=== PATIENT | male | born 1940 | race Caucasian/White ===

== ENCOUNTER → 2023-01-08 09:29 | Outpatient (BNVA) | payer OTHER, SELFPAY | PROVIDERS: Family Provider Internal Medicine; PCP Internal Medicine; Visit Provider Thoracic Surgery (Cardiothoracic Vascular Surgery) | DX: I96 Gangrene, not elsewhere classified (principal); L98.492 Non-pressure chronic ulcer of skin of other sites with fat layer exposed | CPT/HCPCS: 11042; 99213 ==

== ENCOUNTER → 2023-01-15 09:38 | Outpatient (BNVA) | payer OTHER, SELFPAY | PROVIDERS: Family Provider Internal Medicine; PCP Internal Medicine; Visit Provider Thoracic Surgery (Cardiothoracic Vascular Surgery) | DX: T22.252D Burn of second degree of left shoulder, subsequent encounter (principal); X08.8XXD Exposure to other specified smoke, fire and flames, subsequent encounter; I96 Gangrene, not elsewhere classified | CPT/HCPCS: 97597 ==

== ENCOUNTER → 2023-01-22 09:57 | Outpatient (BNVA) | payer OTHER, SELFPAY | PROVIDERS: Family Provider Internal Medicine; PCP Internal Medicine; Visit Provider Thoracic Surgery (Cardiothoracic Vascular Surgery) | DX: Z09 Encounter for follow-up examination after completed treatment for conditions other than malignant neoplasm (principal) | CPT/HCPCS: 99212 ==

== ENCOUNTER 2023-12-01 16:26 | Emergency (ER) | payer OTHER, SELFPAY ==
[2023-12-01 16:33] VITALS: BP 121/76; PULSE 86; RESP 15; TEMP 36.7; O2SAT 91; BMI 18.3
--- NOTE | 2023-12-01 16:41 | XRR_ITS ---
PROCEDURE INFORMATION: Exam: XR Chest Exam date and time: 12/01/2023 4:51 PM Age: 83 years old Clinical indication: Cough TECHNIQUE: Imaging protocol: Radiologic exam of the chest. Views: 1 view. COMPARISON: CR XR chest 1V [id number] 01/08/2018 9:44 AM FINDINGS: Lungs: New indistinct opacity in the left mid lung on the order of 2 cm in size. Small calcified granulomata in the right lung. Pleural spaces: No pleural effusion identified. Heart/Mediastinum: Cardiomediastinal silhouette is stable.. Bones/joints: No acute osseous abnormality identified. XR/XR chest 1V portable [id number] IMPRESSION: Indistinct approximately 2 cm density in the left mid lung with central lucency. This may represent a superimposition artifact from areas of scarring but a cavitary lesion cannot be excluded. Recommend further evaluation by chest CT. This could be performed noncontrast if clinically appropriate.
--- NOTE | 2023-12-01 16:58 | ED_ITS ---
HPI - URI/Sore Throat 2 General: Chief Complaint: Upper Respiratory Infection Stated Complaint: throat pain, ear pain Time Seen by Provider: 12/01/23 16:40 History of Present Illness: 83-year-old male patient comes in today with cough congestion. Patient appears chronically ill. Patient appears in no pain. Patient appears in no respiratory difficulty. Patient smokes about a pack a day. Patient denies any chronic medical problems. Patient is alert and oriented. Review of Systems 2 General: Reports: 10 or more systems reviewed and unremarkable except in HPI and below Resp: Reports: productive cough Physical Exam 2 Const: COMMON NORMALS: alert HENMT: COMMON NORMALS: normocephalic HEAD & SCALP: normocephalic Neck/C-Spine: COMMON NORMALS: full ROM Resp: COMMON NORMALS: normal respiratory effort AUSCULTATION: rhonchi Cardio: COMMON NORMALS: regular rate and regular rhythm RATE: regular rate RHYTHM: regular rhythm GI: COMMON NORMALS: Soft to palpation and non-tender PALPATION: Yes Soft to palpation Extremity: COMMON NORMALS: normal to inspection Neuro: SENSORIUM/ORIENTATION: Yes alert Skin: COMMON NORMALS: turgor normal GENERAL SKIN EXAM: turgor normal Course 2 Vital Signs: Vital signs: Vital Signs Temperature 98.0 F 12/01/23 16:33 Pulse Rate 78 12/01/23 17:11 Respiratory Rate 17 12/01/23 17:11 Blood Pressure 105/51 12/01/23 17:11 Pulse Oximetry 90 12/01/23 17:11 Oxygen Delivery Me thod Room Air 12/01/23 17:11 MDM - URI/Sore Throat Medical Decision Making 83-year-old male patient comes in today with cough and congestion for about 3 weeks. Patient reports worsening symptoms. Caregiver reports that he sometimes seems to gets choked on his food. Patient is a chronic cigarette smoker of about a pack a day. Patient moves all extremities well. Patient is alert and responds appropriately to questions. Patient appears in no distress. Vital signs are normal. Differential diagnosis includes pneumonia, dehydration, COPD, acute bronchitis, asthma, lung carcinoma. Chest x-ray notes indistinct area in his left mid lung approximately 2 cm which may be superimposition artifact versus a cavitary lesion I recommend further evaluation with CT scan. I reviewed this with patient and caregiver and recommended follow-up with primary care for CT evaluation. Patient will be treated with antibiotic for bronchitis and possible pneumonia. Patient was also given 10 mg dexamethasone. Patient and caregiver reported understanding and agreed to plan. Lab Data 12/01/23 17:12 12/01/23 17:12 Radiology Impressions Chest X-Ray 12/01/23 16:41 IMPRESSION: Indistinct approximately 2 cm density in the left mid lung with central lucency. This may represent a superimposition artifact from areas of scarring but a cavitary lesion cannot be excluded. Recommend further evaluation by chest CT. This could be performed noncontrast if clinically appropriate. Laboratory Results WBC 9.60 10^3/uL (3.29-11.43) 12/01/23 17:12 RBC 4.22 10^6/uL (3.85-5.65) 12/01/23 17:12 Hgb 12.30 g/dL (11.27-16.99) 12/01/23 17:12 Hct 38.9 % (37-53) 12/01/23 17:12 MCV 92.2 fl (82-101) 12/01/23 17:12 MCH 29.1 pg (27-33) 12/01/23 17:12 MCHC 31.6 g/dL (30-55) 12/01/23 17:12 RDW 14.1 % (12.1-15.1) 12/01/23 17:12 Plt Count 191 10^3/cmm (157-399) 12/01/23 17:12 MPV 11.6 fL (7.4-10.4) H 12/01/23 17:12 Neut % (Auto) 82.5 % 12/01/23 17:12 Lymph % (Auto) 10.7 % 12/01/23 17:12 [place] % (Auto) 5.9 % 12/01/23 17:12 Eos % (Auto) 0.4 % 12/01/23 17:12 Baso % (Auto) 0.1 % 12/01/23 17:12 Neut # (Auto) 7.91 10^3/uL (1.8-7.7) H 12/01/23 17:12 Lymph # (Auto) 1.0 10^3/uL (0.8-4.8) 12/01/23 17:12 [place] # (Auto) 0.6 10^3/uL (0.2-0.9) 12/01/23 17:12 Eos # (Auto) 0.0 10^3/uL (0.0-0.8) 12/01/23 17:12 Baso # (Auto) 0.0 10^3/uL (0.0-0.1) 12/01/23 17:12 Nucleated RBC % (auto) 0 % 12/01/23 17:12 Nucleated RBCs # 0.0 /100WBC 12/01/23 17:12 Sodium 141 mmol/L (136-145) 12/01/23 17:12 Potassium 4.1 mmol/L (3.5-5.1) 12/01/23 17:12 Chloride 104 mmol/L (98-107) 12/01/23 17:12 Carbon Dioxide 25 mmol/L (22-29) 12/01/23 17:12 Anion Gap 16.1 (5-19) 12/01/23 17:12 BUN 28 mg/dL (8-23) H 12/01/23 17:12 Creatinine 1.5 mg/dL (0.7-1.2) H 12/01/23 17:12 GFR Calculation Not Reportable 12/01/23 17:12 Glucose 114 mg/dL (65-115) 12/01/23 17:12 Calculated Osmolality 298 mOsm/kg (285-295) H 12/01/23 17:12 Calcium 9.2 mg/dL (8.5-10.5) 12/01/23 17:12 Total Bilirubin 0.5 mg/dL (0.15-1.2) 12/01/23 17:12 AST 8 U/L (0-40) 12/01/23 17:12 ALT < 5 U/L (0-41) 12/01/23 17:12 Alkaline Phosphatase 86 U/L (40-130) 12/01/23 17:12 Total Protein 7.4 g/dL (6.6-8.7) 12/01/23 17:12 Albumin 3.8 g/dL (3.5-5.2) 12/01/23 17:12 Globulin 3.6 g/dL (1.3-4.6) 12/01/23 17:12 Group A Strep Rapid Negative (Negative) 12/01/23 17:07 All radiology interpretation(s) finalized by discharge Discharge Plan Discharge Patient Disposition: Home Clinical Impression: Bronchitis, Abnormal x-ray of lung Condition: Stable Prescriptions: New doxycycline hyclate 100 mg capsule 100 mg PO BID 7 Days Qty: 14 0RF Discharge Orders: Discharge ED (Routine); Ordered 12/01/23 Ordered By: Edgar Evans Discharge Diet: Usual diet Discharge Activity: Increase activity as tolerated Patient Instructions: Acute Bronchitis (ED) Activity Restrictions/Additional Instructions: Take antibiotic as directed. Follow-up with primary care and 1 week. Return to ED for worsening difficulty with breathing, fever greater than 100.4, or severe chest pain. Coding Level of Care Code ED [employer] Officer for [facility]ra [place]
[2023-12-01 17:11] VITALS: BP 105/51; PULSE 78; RESP 17; O2SAT 90
[2023-12-01 17:21] LABS: Basophils % 0.1 %; Eosinophils % 0.4 %; Hematocrit 38.9 % (37-53); Lymphocytes % 10.7 %; Mean Corpuscular HGB Conc 31.6 g/dL (30-55); Mean Corpuscular Hemoglobin 29.1 pg (27-33); Mean Corpuscular Volume 92.2 fl (82-101); Mean Platelet Volume 11.6 fL (7.4-10.4); Monocytes # 0.6 10^3/uL (0.2-0.9); Monocytes % 5.9 %; Neutrophils # 7.91 10^3/uL (1.8-7.7); Neutrophils % 82.5 %; Nucleated Red Blood Cells % 0 %; Platelet Count 191 10^3/cmm (157-399); Red Blood Count 4.22 10^6/uL (3.85-5.65); Red Cell Distribution Width 14.1 % (12.1-15.1)
[2023-12-01 17:26] LABS: Rapid Strep A Test Negative (Negative)
[2023-12-01 17:36] LABS: Alanine Aminotransferase < 5 U/L (0-41); Albumin Level 3.8 g/dL (3.5-5.2); Alkaline Phosphatase 86 U/L (40-130); Anion Gap 16.1 (5-19); Aspartate Amino Transferase 8 U/L (0-40); Blood Urea Nitrogen 28 mg/dL (8-23); Calcium 9.2 mg/dL (8.5-10.5); Carbon Dioxide 25 mmol/L (22-29); Chloride 104 mmol/L (98-107); Creatinine Clr Calc Pharmacy 28.6433; Globulin 3.6 g/dL (1.3-4.6); Glucose 114 mg/dL (65-115); Osmolality Calculated 298 mOsm/kg (285-295); Potassium 4.1 mmol/L (3.5-5.1); Sodium 141 mmol/L (136-145); Total Bilirubin 0.5 mg/dL (0.15-1.2); Total Protein 7.4 g/dL (6.6-8.7)
[2023-12-01] MEDS: doxycycline 100 mg Tablet PO (18:15)
[2023-12-01] MEDS: dexamethasone 10 mg/mL INJ IM (18:16)
[2023-12-01 18:58] LABS: Adenovirus Not Detected (NOT DETECT); Chlamydia Pneumoniae Not Detected (NOT DETECT); Coronavirus 229E,HKU1,NL63,OC4 Not Detected (NOT DETECT); Human Metapneumovirus Not Detected (NOT DETECT); Human Rhinovirus/Enterovirus Not Detected (NOT DETECT); Influenza A Not Detected (NOT DETECT); Influenza A H1 Not Detected (NOT DETECT); Influenza A H1-2009 Not Detected (NOT DETECT); Influenza A H3 Not Detected (NOT DETECT); Influenza B Not Detected (NOT DETECT); Mycoplasma Pneumoniae Not Detected (NOT DETECT); Parainfluenza Virus Type 1 Not Detected (NOT DETECT); Parainfluenza Virus Type 2 Not Detected (NOT DETECT); Parainfluenza Virus Type 3 Not Detected (NOT DETECT); Parainfluenza Virus Type 4 Not Detected (NOT DETECT); Respiratory Syncytial Virus A Not Detected (NOT DETECT); Respiratory Syncytial Virus B Not Detected (NOT DETECT); SARS-COV-2 Not Detected (NOT DETECT)
== END 2023-12-01 18:22 | disposition home or self-care (01) ==
PROVIDERS: Emergency Provider Nurse Practitioner Family
DX: J40 Bronchitis, not specified as acute or chronic (principal); R91.8 Other nonspecific abnormal finding of lung field; F17.210 Nicotine dependence, cigarettes, uncomplicated
CPT/HCPCS: 36415; 71045; 80053; 85025; 87081; 87486; 87581; 87633; 87880; 96372; 99284; J1100